=== PATIENT | male | born 1960 | race Caucasian/White ===

== ENCOUNTER 2022-09-09 10:05 | Day surgery (SDC) | payer OTHER ==
[~2022-09-09 10:05] MED LIST: Lactated Ringers 1,000 ML IV SCH; Lidocaine 1%/Sod Bicarbonate in NS 8.4% 1 ML Syringe IDERM PRN; Sodium Chloride 0.9% 10 ML Syringe FLUSH PRN; Sodium Chloride 0.9% 10 ML Syringe FLUSH SCH
[2022-09-09] MEDS ORDERED: Lidocaine 1% 4 ML ONE (11:52)
[2022-09-09] MEDS ORDERED: Propofol 200 MG/20 ML SDV ONE (11:52)
== END 2022-09-09 13:03 | disposition home or self-care (01) ==
LOC: JD.SDS 10:05
PROVIDERS: ATTEND Surgery
DX: Z12.11 Encounter for screening for malignant neoplasm of colon (principal); K62.1 Rectal polyp; K64.8 Other hemorrhoids; E21.3 Hyperparathyroidism, unspecified; E55.9 Vitamin D deficiency, unspecified; Z79.899 Other long term (current) drug therapy; Z85.46 Personal history of malignant neoplasm of prostate
CPT/HCPCS: 45380; J2704; J7120; 00811; J3490